=== PATIENT | female | born 1990 | race African-American/Black ===

== ENCOUNTER 2017-01-16 13:05 | Emergency (ER) | payer MEDICAID ==
[~2017-01-16] VITALS: Ht 180.3 cm; Wt 60.4 kg
[~2017-01-16 13:05] MED LIST: PROT40TA PO; ZOFR4TAB3 SL
[2017-01-16 13:07] VITALS: BP 138/98; PULSE 80; RESP 16; TEMP 97.8; O2SAT 100
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
[2017-01-16] MEDS ORDERED: IBUP800T23 PO (14:45)
== END 2017-01-16 14:57 | disposition home or self-care (01) ==
LOC: PHEFT 13:05
DX: S39.012A Strain of muscle, fascia and tendon of lower back, initial encounter (principal); S30.0XXA Contusion of lower back and pelvis, initial encounter; M06.9 Rheumatoid arthritis, unspecified; B19.10 Unspecified viral hepatitis B without hepatic coma; F17.210 Nicotine dependence, cigarettes, uncomplicated; Y08.02XA Assault by strike by baseball bat, initial encounter
CPT/HCPCS: 72110; 99283

== ENCOUNTER 2017-06-12 08:03 | Observation (INO) | payer MEDICAID ==
[~2017-06-12] VITALS: Ht 177.8 cm; Wt 63.0 kg
[~2017-06-12 08:03] MED LIST changes: +IBUP1TAB7 PO; -PROT40TA PO; -ZOFR4TAB3 SL
[2017-06-12 08:04] VITALS: BP 134/87; PULSE 71; RESP 16; TEMP 98.3; O2SAT 100
[2017-06-12 08:05] VITALS: BP 115/65; PULSE 62; RESP 18; TEMP 98.2; O2SAT 99
[2017-06-12] MEDS ORDERED: SODIUM CHLOR 0.9% 1000 ML INJ 1,000 ML IV SCH (08:24)
[2017-06-12] MEDS ORDERED: SODIUM CHLORIDE 0.9% FLUSH 10 ML FLUSH IV FLUSH PRN (08:30)
[2017-06-12] MEDS ORDERED: MORPHINE SULFATE 4 MG/ML INJ IV PUSH ONE ×2 (08:30→11:15)
[2017-06-12] MEDS ORDERED: ONDANSETRON HCL 4 MG/2 ML VIAL IVP ONE (08:30)
--- NOTE | 2017-06-12 08:32 | PD ---
HPI Chief Complaint: Abdominal Pain Time Seen by Provider: 08:24 Travel History International Travel<30 days: No Contact w/Intl Traveler<30days: No Traveled to known affect area: No History of Present Illness HPI 0.6-year-old female history of pancreatitis, presents today with complaint of nausea vomiting and upper abdominal pain. The patient states it started yesterday. She reports the pain as sharp and stabbing in her left upper abdomen radiating to her left back. She denies any fevers, chills. She states that 2 years ago she had an episode of pancreatitis and was seen and evaluated at [facility]. There is no blood in her vomit. There is no reported diarrhea. There are no other complaints time my examination. PFSH Past Medical History Arthritis: Yes (RA) Autoimmune Disease: Yes (RA) Bipolar Disorder: Yes Anxiety: Yes Depression: Yes Heart Rhythm Problems: No Cancer: No Cardiovascular Problems: No High Cholesterol: No Chemotherapy: No Chest Pain: No Congestive Heart Failure: No Cerebrovascular Accident: No Diminished Hearing: No Endocrine: No Gastrointestinal Disorders: Yes GERD: No Genitourinary: No Headaches: Yes Hepatitis: Yes (B) Hiatal Hernia: No Hypertension: No Immune Disorder: No Implanted Vascular Access Dvce: No Musculoskeletal: Yes Neurologic: Yes Psychiatric: No Reproductive: No Respiratory: No Immunizations Current: No Migraines: No Pancreatitis: Yes Radiation Therapy: No Seizures: Yes Ulcer: No ?: Not : 1 Miscarriage: 1 Past Surgical History Surgical History: No Previous Surgery Other Surgery: No Social History Alcohol Use: No Tobacco Use: Yes (/3PPD) Substance Use: No Allergies-Medications (Allergen,Severity, Reaction): Coded Allergies: metoclopramide (Verified Adverse Reaction, Unknown, 06/12/17) Reported Meds & Prescriptions Reported Meds & Active Scripts Active No Active Prescriptions or Reported Medications Review of Systems Except as stated in HPI: all other systems reviewed are Neg General / Constitutional: No: Fever, Chills HENT: No: Headaches, Lightheadedness, Neck Pain Cardiovascular: No: Chest Pain or Discomfort, Palpitations Respiratory: No: Cough, Shortness of Breath Gastrointestinal: Positive: Nausea, Vomiting, Abdominal Pain (left upper radiate into her left back.), No: Diarrhea Genitourinary: No: Frequency, Dysuria, Discharge, Vaginal Bleeding Musculoskeletal: No: Weakness, Pain Neurologic: No: Weakness, Dizziness, Headache Psychiatric: Positive: Anxiety Physical Exam Narrative GENERAL: Well-nourished, well-developed patient, in no acute respiratory distress.. SKIN: Focused skin assessment warm/dry. HEAD: Normocephalic/atraumatic. EYES: No scleral icterus. No injection or drainage. NECK: Supple, trachea midline. CARDIOVASCULAR: Regular rate and rhythm without murmurs, gallops, or rubs. RESPIRATORY: Breath sounds equal bilaterally. No accessory muscle use. GASTROINTESTINAL: Abdomen soft, nondistended. She has subjective tenderness in her left upper abdomen. There is no rebound. There is mild guarding. No hepatosplenomegaly appreciated. MUSCULOSKELETAL: No cyanosis, or edema. BACK: Nontender without obvious deformity. No CVA tenderness. Subjective pain in her left flank. Not reproducible on exam. NEUROLOGICAL: Awake and alert. Cranial nerves II through XII intact. Motor grossly within normal limits. Five out of 5 muscle strength in all muscle groups. Normal speech. Data Data Last Documented VS Vital Signs Date Time Temp Pulse Resp B/P (MAP) Pulse Ox O2 Delivery O2 Flow Rate FiO2 06/12/17 08:40 57 19 100 06/12/17 08:04 98.3 Orders Orders Complete Blood Count With Diff (06/12/17 08:24) Comprehensive Metabolic Panel (06/12/17 08:24) Lipase (06/12/17 08:24) Urinalysis - C+S If Indicated (06/12/17 08:24) Iv Access Insert/Monitor (06/12/17 08:24) Ecg Monitoring (06/12/17 08:24) Oximetry (06/12/17 08:24) Morphine Inj (Morphine Inj) (06/12/17 08:30) Ondansetron Inj (Zofran Inj) (06/12/17 08:30) Sodium Chlor 0.9% 1000 Ml Inj (Ns 1000 M (06/12/17 08:24) Sodium Chloride 0.9% Flush (Ns Flush) (06/12/17 08:30) Ed Urine Pregnancytest Poc (06/12/17 08:24) Morphine Inj (Morphine Inj) (06/12/17 11:15) Place In Observation (06/12/17 ) Vital Signs (Adult) Q4H (06/12/17 11:46) Activity Oob With Assistance (06/12/17 11:46) Substation Maintenance Technician / Telemetry .CONTINUOUS (06/12/17 11:46) Diet Clear Liquid (06/12/17 Lunch) Sodium Chlor 0.9% 1000 Ml Inj (Ns 1000 M (06/12/17 11:46) Sodium Chloride 0.9% Flush (Ns Flush) (06/12/17 12:00) Sodium Chloride 0.9% Flush (Ns Flush) (06/12/17 21:00) Comprehensive Metabolic Panel (06/13/17 06:00) Complete Blood Count With Diff (06/13/17 06:00) Case Management Consult (06/12/17 11:46) Naloxone Inj (Narcan Inj) (06/12/17 12:00) Morphine Inj (Morphine Inj) (06/12/17 12:00) Ondansetron Inj (Zofran Inj) (06/12/17 12:00) Admit Order (Ed Use Only) (06/12/17 12:01) Labs Laboratory Tests Test 06/12/17 08:25 White Blood Count 5.3 TH/MM3 Red Blood Count 4.57 MIL/MM3 Hemoglobin 13.2 GM/DL Hematocrit 40.5 % Mean Corpuscular Volume 88.7 FL Mean Corpuscular Hemoglobin 28.9 PG Mean Corpuscular Hemoglobin Concent 32.5 % Red Cell Distribution Width 13.1 % Platelet Count 257 TH/MM3 Mean Platelet Volume 9.4 FL Neutrophils (%) (Auto) 54.9 % Lymphocytes (%) (Auto) 37.0 % Monocytes (%) (Auto) 6.0 % Eosinophils (%) (Auto) 1.4 % Basophils (%) (Auto) 0.7 % Neutrophils # (Auto) 2.9 TH/MM3 Lymphocytes # (Auto) 2.0 TH/MM3 Monocytes # (Auto) 0.3 TH/MM3 Eosinophils # (Auto) 0.1 TH/MM3 Basophils # (Auto) 0.0 TH/MM3 CBC Comment DIFF FINAL Differential Comment Urine Color YELLOW Urine Turbidity CLEAR Urine pH 6.5 Urine Specific [place] 1.018 Urine Protein NEG mg/dL Urine Glucose (UA) NEG mg/dL Urine Ketones 40 mg/dL Urine Occult Blood SMALL Urine Nitrite NEG Urine Bilirubin NEG Urine Urobilinogen 2.0 MG/DL Urine Leukocyte Esterase NEG Urine RBC LESS THAN 1 /hpf Urine WBC LESS THAN 1 /hpf Urine Squamous Epithelial Cells 2 /hpf Urine Mucus FEW /lpf Microscopic Urinalysis Comment CULT NOT INDICATED Blood Urea Nitrogen 8 MG/DL Creatinine 0.76 MG/DL Random Glucose 89 MG/DL Total Protein 8.8 GM/DL Albumin 3.8 GM/DL Calcium Level 9.1 MG/DL Alkaline Phosphatase 48 U/L Aspartate Amino Transf (AST/SGOT) 17 U/L Alanine Aminotransferase (ALT/SGPT) 18 U/L Total Bilirubin 0.3 MG/DL Sodium Level 137 MEQ/L Potassium Level 4.2 MEQ/L Chloride Level 103 MEQ/L Carbon Dioxide Level 24.7 MEQ/L Anion Gap 9 MEQ/L Estimat Glomerular Filtration Rate 111 ML/MIN Lipase 515 U/L [facility] Medical Decision Making Medical Screen Exam Complete: Yes Emergency Medical Condition: Yes Differential Diagnosis Peptic ulcer disease versus pancreatitis versus cholecystitis Narrative Course 27 old female who presents with epigastric pain radiated into her left flank. The patient has a history of pancreatitis. Her lipase is elevated at above 500. She's been given 2 doses of IV pain medications. She'll be admitted to the medicine service for IV pain control and bowel rest. There is a call out to the admitting service. Diagnosis Primary Impression: Pancreatitis Additional Impression: Nausea & vomiting Admitting Information Admitting Physician Requests: Admit Scripts No Active Prescriptions or Reported Meds Ricky Gann MD Jun 12, 2017 08:32
[2017-06-12 08:40] VITALS: PULSE 57; RESP 19; O2SAT 100
[2017-06-12 09:17] LABS: AUTOMATED NEUTROPHIL # 2.9 TH/MM3 (1.8-7.7); BASOPHIL % 0.7 % (0.0-2.0); EOSINOPHIL # 0.1 TH/MM3 (0-0.4); EOSINOPHIL % 1.4 % (0.0-4.0); HEMATOCRIT 40.5 % (35.0-46.0); HEMO FLAGS DIFF FINAL; MEAN CELL VOLUME 88.7 FL (80.0-100.0); MEAN CORPUSCULAR HEMOGLOBIN 28.9 PG (27.0-34.0); MEAN CORPUSCULAR HGB CONC 32.5 % (32.0-36.0); NEUT % 54.9 % (16.0-70.0); PLATELET COUNT 257 TH/MM3 (150-450); RED BLOOD COUNT 4.57 MIL/MM3 (4.00-5.30); RED CELL DISTRIBUTION WIDTH 13.1 % (11.6-17.2); WHITE BLOOD COUNT 5.3 TH/MM3 (4.0-11.0)
[2017-06-12 09:21] LABS: BLOOD, URINE SMALL (NEG); COMMENT (UR) CULT NOT INDICATED; CULTURE IF INDICATED CULT NOT INDICATED; GLUCOSE,URINE NEG (NEG); KETONE, URINE 40 mg/dL (NEG); MUCUS URINE FEW /lpf (OCC); NITRITE,URINE NEG (NEG); PH, URINE 6.5 (5.0-8.5); SQUAMOUS EPITHELIAL CELL URINE 2 /hpf (0-5); URINE COLOR YELLOW (YELLW/STRAW)
[2017-06-12 09:46] LABS: ALKALINE PHOSPHATASE 48 U/L (45-117); ALT (GPT) 18 U/L (10-53); TOTAL BILIRUBIN ADULT 0.3 MG/DL (0.2-1.0)
[2017-06-12 10:01] LABS: ANION GAP 9 MEQ/L (5-15); AST (GOT) 17 U/L (15-37); BICARBONATE 24.7 MEQ/L (21.0-32.0); BLOOD UREA NITROGEN 8 MG/DL (7-18); CHLORIDE 103 MEQ/L (98-107); GLOMERULAR FILTRATION RATE 111 ML/MIN (>89); POTASSIUM 4.2 MEQ/L (3.5-5.1); SODIUM (NA) 137 MEQ/L (136-145)
[2017-06-12] MEDS ORDERED: ONDANSETRON HCL 4 MG/2 ML VIAL IV PUSH PRN (12:00)
[2017-06-12] MEDS ORDERED: NALOXONE HCL 0.4 MG/ML AMP IV PUSH PRN (12:00)
[2017-06-12 13:03] VITALS: BP 116/55; PULSE 57; RESP 18; O2SAT 99
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
[2017-06-12] MEDS ORDERED: DIATRIZOATE MEGLUM/DIATRIZOATE SOD 9 ML CUP PO ONE (14:30)
[2017-06-12] MEDS: SODIUM CHLOR 0.9% 1000 ML INJ 1,000 ML IV SCH (14:51)
[2017-06-12 15:22] VITALS: BP 103/70; PULSE 75; RESP 24; TEMP 98.3; O2SAT 99
--- NOTE | 2017-06-12 16:00 | PD.CONS ---
HPI History of Present Illness This is a 27 year old female with hx h pylori, who presented with upper left abd pain and back pain, n/v. Onset yesterday morning and worsened. She has been having this pain and n/v, intermittently every few months, for the last 5- 6 years. Pain is LUQ and radiates straight through to back, no exacerbating, associated, or relieving factors. No diarrhea, hematemesis, blood in stool, dark tarry stool. She has lost 10 lbs in the last 6 months, cites decreased appetite and early satiety. SHe feels that she is often thirsty and drinks alot of fluids. IF she does not have anythign to drink she starts having copious belching. SHe had EGD & colonoscopy 2 y ago at [facility] and she can recall no abnormal findings. SHe had a GES at [facility] 2 y ago and she does not recall the outcome. (Bhumika Torres) PFSH Past Medical History seizures chronic nausea- and thats why she is not eating well chronically loss of appetite weight loss - past one year- two years only Past Surgical History none except for egd and colonoscopy (Bhumika Torres) Coded Allergies: metoclopramide (Verified Adverse Reaction, Unknown, 06/12/17) Family History parents- htn mother- hysterectomy paternal grandfather- colon cancer- diagnosed at age 65yo Social History smokes about 10 cigarettes a day no drinking etoh no drugs (Bhumika Torres) Review of Systems Constitutional: COMPLAINS OF: Weight loss Endocrine: COMPLAINS OF: Polydipsia Ears, nose, mouth, throat: DENIES: Hearing loss Respiratory: DENIES: Hemoptysis Cardiovascular: DENIES: Chest pain Gastrointestinal: COMPLAINS OF: Abdominal pain, Nausea, Vomiting, Anorexia, DENIES: Black stools, Bloody stools, Constipation, Diarrhea, Hematemesis Genitourinary: DENIES: Hematuria Musculoskeletal: DENIES: Joint Swelling Integumentary: DENIES: Jaundice Hematologic/lymphatic: DENIES: Bruising Neurologic: DENIES: Abnormal gait Psychiatric: DENIES: Confusion (Bhumika Torres) GI Exam Vitals I&O Vital Signs Date Time Temp Pulse Resp B/P (MAP) Pulse Ox O2 Delivery O2 Flow Rate FiO2 06/12/17 15:22 98.3 75 24 103/70 (81) 99 06/12/17 13:35 06/12/17 13:03 57 18 116/55 (75) 99 Room Air 06/12/17 08:40 57 19 100 06/12/17 08:16 (103) 06/12/17 08:04 98.3 71 16 134/87 (103) 100 Laboratory Test 06/12/17 08:25 White Blood Count 5.3 TH/MM3 Red Blood Count 4.57 MIL/MM3 Hemoglobin 13.2 GM/DL Hematocrit 40.5 % Mean Corpuscular Volume 88.7 FL Mean Corpuscular Hemoglobin 28.9 PG Mean Corpuscular Hemoglobin Concent 32.5 % Red Cell Distribution Width 13.1 % Platelet Count 257 TH/MM3 Mean Platelet Volume 9.4 FL Neutrophils (%) (Auto) 54.9 % Lymphocytes (%) (Auto) 37.0 % Monocytes (%) (Auto) 6.0 % Eosinophils (%) (Auto) 1.4 % Basophils (%) (Auto) 0.7 % Neutrophils # (Auto) 2.9 TH/MM3 Lymphocytes # (Auto) 2.0 TH/MM3 Monocytes # (Auto) 0.3 TH/MM3 Eosinophils # (Auto) 0.1 TH/MM3 Basophils # (Auto) 0.0 TH/MM3 CBC Comment DIFF FINAL Differential Comment Urine Color YELLOW Urine Turbidity CLEAR Urine pH 6.5 Urine Specific [place] 1.018 Urine Protein NEG mg/dL Urine Glucose (UA) NEG mg/dL Urine Ketones 40 mg/dL Urine Occult Blood SMALL Urine Nitrite NEG Urine Bilirubin NEG Urine Urobilinogen 2.0 MG/DL Urine Leukocyte Esterase NEG Urine RBC LESS THAN 1 /hpf Urine WBC LESS THAN 1 /hpf Urine Squamous Epithelial Cells 2 /hpf Urine Mucus FEW /lpf Microscopic Urinalysis Comment CULT NOT INDICATED Blood Urea Nitrogen 8 MG/DL Creatinine 0.76 MG/DL Random Glucose 89 MG/DL Total Protein 8.8 GM/DL Albumin 3.8 GM/DL Calcium Level 9.1 MG/DL Alkaline Phosphatase 48 U/L Aspartate Amino Transf (AST/SGOT) 17 U/L Alanine Aminotransferase (ALT/SGPT) 18 U/L Total Bilirubin 0.3 MG/DL Sodium Level 137 MEQ/L Potassium Level 4.2 MEQ/L Chloride Level 103 MEQ/L Carbon Dioxide Level 24.7 MEQ/L Anion Gap 9 MEQ/L Estimat Glomerular Filtration Rate 111 ML/MIN Lipase 515 U/L Physical Examination HEENT: PERRL; normocephalic; atraumatic; no jaundice. CHEST: CTA CARDIAC: RRR ABDOMEN: Soft, nondistended, LUQ TTP; no hepatosplenomegaly; bowel sounds are present in all four quadrants. EXTREMITIES: No clubbing, cyanosis, or edema. SKIN: Normal; no rash; no jaundice. TOOL AND FIXTURE REPAIRER: No focal deficits; alert and oriented times three. (Bhumika Torres) Assessment and Plan Plan ASSESSMENT - n/v, abd pain , elevated lipase - epigastric and LUQ pain, belching, thirst. has episodes of this intermittently for last 5-6 y. lipase could be elevated d/t vomiting. has had work up in past but cannot recall many details. EGD/ colonoscopy 2 y ago, recalls no abnormal findings. [facility] records from [facility] yields neg CT scan 2016, lipase < 100 on 2 occasions in last year. Says she did have h pylori in past and was treated CT pending, will get MRCP as well to r/o pancreatitis, pancreatic divisum. EGD r/o h pylori, gastritis. PLAN - await CT - EGD tomorrow - obtain consent - NPO after midnight - clears ok for now - MRCP - consider colonoscopy, GES if above negative - monitor labs - further recs as case unfolds This pt seen by myself and Dr Mccabe and this note is written on his behalf (Bhumika Torres) Physician Comments Seen and examined with cesilia Goyal as above. Conservative treatment for now. Will need work up for recurrent idiopathic pancreatitis. Further recommendations to follow pending EGD/MRCP/IgG4/ELIZABETH. (Darshana Mccabe MD) Bhumika Torres Jun 12, 2017 16:00 Darshana Mccabe MD Jun 12, 2017 16:34
[2017-06-12] MEDS: MORPHINE SULFATE 2 MG/ML INJ IV PUSH PRN ×2 (16:13→22:02)
[2017-06-12] MEDS ORDERED: IOHEXOL 350 MG/ML 10 ML VIAL (for RAD DIAG) IVCONTRAST ONE (18:16)
--- NOTE | 2017-06-12 18:54 | RADRPT ---
EXAM DATE/TIME: 06/12/2017 18:11 [facility] COMPARISON: No previous studies available for comparison. INDICATIONS : Nausea, vomiting and upper abdomen pain. IV CONTRAST: 72 cc Omnipaque 350 (iohexol) IV ORAL CONTRAST: Prescribed oral contrast ingested. RADIATION DOSE: 6.64 CTDIvol (mGy) MEDICAL HISTORY : Hepatitis B. Pancreatitis. Seizures. SURGICAL HISTORY : None. ENCOUNTER: Initial ACUITY: 1 day PAIN SCALE: 6/10 LOCATION: Bilateral upper quadrant TECHNIQUE: Volumetric scanning of the abdomen and pelvis was performed. Using automated exposure control and ad justment of the mA and/or kV according to patient size, radiation dose was kept as low as reasonably achievable to obtain optimal diagnostic quality images. DICOM format image data is available electro nically for review and comparison. FINDINGS: LOWER LUNGS: The visualized lower lungs are clear. LIVER: Homogeneous density without lesion. There is no dilation of the biliary tree. No calcified gallston es. SPLEEN: Normal size without lesion. PANCREAS: Within normal limits. KIDNEYS: Normal in size and shape. There is no mass, stone or hydronephrosis. ADRENAL GLANDS: Within normal limits. VASCULAR: There is no aortic aneurysm. BOWEL/MESENTERY: The stomach, small bowel, and colon demonstrate no acute abnormality. There is no free intraperitone al air or fluid. Terminal ileum is normal. Appendix is not visualized. ABDOMINAL WALL: Within normal limits. RETROPERITONEUM: There is no lymphadenopathy. BLADDER: No wall thickening or mass. Urinary bladder is distended. REPRODUCTIVE: Within normal limits. There is a tampon within the vagina. INGUINAL: There is no lymphadenopathy or hernia. MUSCULOSKELETAL: Within normal limits for patient age. CONCLUSION: No acute finding is identified within the abdomen or pelvis. Venkat Banda MD on June 12, 2017 at 18:49 Board Certified Radiologist. This report was verified electronically.
[2017-06-12] MEDS: SODIUM CHLORIDE 0.9% FLUSH 10 ML FLUSH IV FLUSH SCH (20:55)
[2017-06-12] MEDS: SODIUM CHLORIDE 0.9% FLUSH 10 ML FLUSH IV FLUSH PRN (22:01)
[2017-06-13] MEDS: SODIUM CHLOR 0.9% 1000 ML INJ 1,000 ML IV SCH ×2 (02:24→09:55)
[2017-06-13] MEDS: SODIUM CHLORIDE 0.9% FLUSH 10 ML FLUSH IV FLUSH PRN ×2 (02:24→06:15)
[2017-06-13] MEDS: MORPHINE SULFATE 2 MG/ML INJ IV PUSH PRN ×3 (02:25→09:52)
[2017-06-13 02:56] VITALS: PULSE 63
[2017-06-13 05:17] VITALS: PULSE 62
[2017-06-13 06:02] LABS: EOSINOPHIL # 0.1 TH/MM3 (0-0.4); EOSINOPHIL % 2.7 % (0.0-4.0); HEMATOCRIT 36.3 % (35.0-46.0); HEMO FLAGS DIFF FINAL; LYMPH % 42.5 % (9.0-44.0); LYMPHOCYTE # 1.8 TH/MM3 (1.0-4.8); MEAN CELL VOLUME 88.3 FL (80.0-100.0); MEAN CORPUSCULAR HEMOGLOBIN 28.5 PG (27.0-34.0); MEAN CORPUSCULAR HGB CONC 32.2 % (32.0-36.0); MONO % 5.5 % (0.0-8.0); NEUT % 48.3 % (16.0-70.0); PLATELET COUNT 215 TH/MM3 (150-450); RED BLOOD COUNT 4.11 MIL/MM3 (4.00-5.30); WHITE BLOOD COUNT 4.1 TH/MM3 (4.0-11.0)
[2017-06-13 06:31] LABS: ALKALINE PHOSPHATASE 38 U/L (45-117); ALT (GPT) 13 U/L (10-53); ANION GAP 8 MEQ/L (5-15); AST (GOT) 11 U/L (15-37); BLOOD UREA NITROGEN 5 MG/DL (7-18); CHLORIDE 107 MEQ/L (98-107); GLOMERULAR FILTRATION RATE 152 ML/MIN (>89); POTASSIUM 3.6 MEQ/L (3.5-5.1); SODIUM (NA) 140 MEQ/L (136-145); TOTAL BILIRUBIN ADULT 0.4 MG/DL (0.2-1.0)
[2017-06-13 07:36] VITALS: BP 94/55; PULSE 60; RESP 16; TEMP 98.2; O2SAT 98
[2017-06-13] MEDS ORDERED: LACTATED RINGER'S 1000 ML IV PRN (08:15)
[2017-06-13] MEDS ORDERED: INSULIN HUMAN REGULAR 1,000 UNITS/10 ML VIAL SQ PRN (08:15)
[2017-06-13] MEDS ORDERED: SODIUM CHLORID 0.9% 500 ML IV PRN (08:15)
[2017-06-13] MEDS ORDERED: CHLORHEXIDINE GLUCONATE 2 % 1 PACK (2 CLOTHS) TOPICAL PRN (08:15)
[2017-06-13] MEDS ORDERED: METOPROLOL TARTRATE 25 MG TAB PO PRN (08:15)
[2017-06-13] MEDS ORDERED: POVIDONE IODINE 5% (ANTISEPSIS KIT) 4 APPLICATIONS EACH NARE PRN (08:15)
[2017-06-13] MEDS: SODIUM CHLORIDE 0.9% FLUSH 10 ML FLUSH IV FLUSH SCH (09:00)
--- NOTE | 2017-06-13 09:49 | RADRPT ---
EXAM DATE/TIME: 06/13/2017 08:10 [facility] COMPARISON: CT ABDOMEN & PELVIS W CONTRAST, June 12, 2017, 18:11. INDICATIONS : Pancreatitis. MEDICAL HISTORY : None. SURGICAL HISTORY : None. ENCOUNTER: Initial ACUITY: 2 day PAIN SCORE: 4/10 LOCATION: Abdomen TECHNIQUE: Multiplanar, multisequence magnetic resonance imaging of the abdomen was performed. High-resolution 3D dataset was utilized to reconstruct maximum-intensity projection (MIP) images. FINDINGS: INTRAHEPATIC BILE DUCTS: Within normal limits. No significant anatomical variant is present. EXTRAHEPATIC BILE DUCTS: The common bile duct measures 4 mm. No stone or filling defect is identified. GALLBLADDER: No stones, wall thickening, or pericholecystic fluid. LIVER: Normal size and signal intensity. No concerning liver lesion is identified on this non-contrast exam. PANCREAS: The main pancreatic duct is small and partially nonvisualized. There is no significant anatomical va riant. Signal intensity is within normal limits. No mass is visualized on this non-contrast exam. OTHER: The remaining visualized structures demonstrate no acute abnormality on this non-contrast exam. CONCLUSION: 1. No gallstones are present and common duct is normal without stone. 2. There are no imaging findings to definitively diagnose acute pancreatitis. No inflammatory changes are present. Venkat Banda MD on June 13, 2017 at 9:37 Board Certified Radiologist. This report was verified electronically.
--- NOTE | 2017-06-13 11:10 | GIPROC ---
[facility] [address] [facility]. [facility], [id number] EGD PROCEDURE REPORT EXAM DATE: 06/13/2017 PATIENT NAME: Opal Beaver MR #: [id number] BIRTHDATE: 1990 ATTENDING: Darshana Mccabe MD ORDER #: [id number] SIMULATION DEVELOPER: Kimberly Zamora and Christina Gray STATUS: inpatient INDICATIONS: The patient is a 27 yr old female here for an EGD due to epigastric abdominal pain PROCEDURE PERFORMED: EGD w/ biopsy MEDICATIONS: None and Per Anesthesia. TOPICAL ANESTHETIC: none CONSENT: The patient understands the risks and benefits of the procedure and understands that these risks include, but are not limited to: sedation, allergic reaction, infection, perforation and/or bleeding. Alternative means of evaluation and treatment include, among others: physical exam, x-rays, and/or surgical intervention. The patient elects to proceed with this endoscopic procedure. medical equipment was checked for proper function. Hand hygiene and appropriate measures for infection prevention was taken. After the risks, benefits and alternatives of the procedure were thoroughly explained, Informed consent was verified, confirmed and timeout was successfully executed by the treatment team. The patient was anesthetized with topical anesthesia and the Pentax EG-[id number] endoscope was introduced through the mouth and advanced to the second portion of the duodenum. Retroflexion was performed and was normal The gastroscope was then slowly withdrawn and removed. ESOPHAGUS: The mucosa of the esophagus appeared normal. STOMACH: There was mild gastritis in the gastric antrum. Multiple biopsies were performed using cold forceps. Sample sent for histology. DUODENUM: The duodenal mucosa appeared normal in the bulb and second portion of the duodenum. ADVERSE EVENTS: There were no complications. IMPRESSIONS: 1. The esophagus appeared normal 2. There was mild gastritis in the gastric antrum; multiple biopsies were performed 3. Normal duodenal mucosa in the bulb and second portion of the duodenum 4. Retroflexion was performed and was normal RECOMMENDATIONS: Await biopsy results. Biopsy results will not be ready for 7-10 days. If you don't hear from us in two weeks, call our office for biopsy results. PATIENT CONDITION: stable DISPOSITION: Observation REPEAT EXAM: NONE Darshana Mccabe MD eSigned: Darshana Mccabe MD 06/13/2017 11:10 AM cc: PATIENT NAME: Opal Beaver MR#: [id number]
[2017-06-13 12:00] VITALS: PULSE 61
[2017-06-13 12:15] VITALS: BP 116/61; PULSE 61; RESP 16; TEMP 98.5; O2SAT 99
[2017-06-13] MEDS ORDERED: CREON24 PO (13:21)
[2017-06-13] MEDS ORDERED: PERC5TAB12 PO (13:21)
--- NOTE | 2017-06-13 16:35 | HHI.DS ---
Discharge Summary Admission Date Jun 12, 2017 at 12:04 pm Discharge Date: Jun 13, 2017 Admitting Diagnosis Acute pancreatitis, nausea, vomiting (1) Pancreatitis ICD Code: K85.9 - Pancreatitis Status: Acute Procedures EGD Brief History - From Admission was not feelign weell since yesterady am pain startign night mid epig nasuewe, vomting spit no fever sweating feeling hot no blood no diarrhea, no constipation no burnign no urination no new medications not taking any meds for now has hx of seizures, was on keppra but hasnt taken any meds for past one year because no pcp lost eveything with loss of wallet 2015 had hida some gi workup including capsule endoscopy at [facility] did not follow up after that to get result still has gallbladder never been a drinker of etoh CBC/BMP: 06/13/17 0541 06/13/17 0541 Significant Findings Laboratory Tests Test 06/12/17 08:25 06/13/17 05:41 Urine Ketones 40 mg/dL (NEG) Urine Occult Blood SMALL (NEG) Urine Mucus FEW /lpf (OCC) Total Protein 8.8 GM/DL (6.4-8.2) Lipase 515 U/L (73-393) 410 U/L (73-393) Blood Urea Nitrogen 5 MG/DL (7-18) Albumin 3.1 GM/DL (3.4-5.0) Alkaline Phosphatase 38 U/L (45-117) Aspartate Amino Transf (AST/SGOT) 11 U/L (15-37) Imaging Last Impressions Cholangiopancreatography MRI 06/13/17 0000 Signed Impressions: Service Date/Time: Tuesday, June 13, 2017 08:10 - CONCLUSION: 1. No gallstones are present and common duct is normal without stone. 2. There are no imaging findings to definitively diagnose acute pancreatitis. No inflammatory changes are present. Venkat Banda MD Abdomen/Pelvis CT 06/12/17 0000 Signed Impressions: Service Date/Time: Monday, June 12, 2017 18:11 - CONCLUSION: No acute finding is identified within the abdomen or pelvis. Venkat Banda MD PE at Discharge GENERAL: Alert, Oriented x 3, NAD. SKIN: Warm and dry. HEAD: Normocephalic. EYES: No scleral icterus. No injection or drainage. NECK: Supple, trachea midline. No JVD or lymphadenopathy. CARDIOVASCULAR: Regular rate and rhythm without murmurs, gallops, or rubs. RESPIRATORY: Breath sounds equal bilaterally. No accessory muscle use. GASTROINTESTINAL: Abdomen soft, mild tenderness on palpation. nondistended. MUSCULOSKELETAL: No cyanosis, or edema. BACK: Nontender without obvious deformity. No CVA tenderness. Pt update on day of discharge Patient is doing well. No fever, chills. She is able to tolerate diet well. Hospital Course Ms. Beaver is a pleasant 27 year old female with a history of chronic pancreatitis who presented to the hospital due to epigastric pain. She underwent EGD and MRCP studies both of which were unremarkable. Lipase was not significantly elevated. Patient was given pain medications along with other supportive care. On the day of discharge, we discussed about pancreatic enzyme supplements such as Creon. Patient agrees to try if her insurance covers her Rx. GI recommended possible outpatient EUS. We subsequently discharged patient home with pain medications and follow up. Pt Condition on Discharge: Good Discharge Disposition: Discharge Home Discharge Time: <= 30 minutes Discharge Instructions DIET: Follow Instructions for: As Tolerated, No Restrictions Additional Diet Instructions: Avoid fatty food for at least one week. Activities you can perform: Regular-No Restrictions Follow up Referrals: Gastroenterology - 2 Weeks with Uriel Marks MD PCP Follow-up - 1 Week New Medications: Oxycodone-Acetaminophen (Percocet) 5-325 mg Tab 1 TAB PO Q6H PRN for PAIN, #20 TAB 0 Refills Pancrelipase (Creon) 24,000-76,000-120,000 Units Cap 1 CAP PO TIDPC for Digestive Aid, #[address] DO Jun 13, 2017 4:35 pm
== END 2017-06-13 15:02 | disposition home or self-care (01) ==
LOC: NEPE 08:03 → NEDA 12:04 → NEPGCP 14:13
PROVIDERS: ADMIT Hospitalist; ATTEND Hospitalist
DX: K29.70 Gastritis, unspecified, without bleeding (principal); K85.90 Acute pancreatitis without necrosis or infection, unspecified; R63.0 Anorexia; R63.4 Abnormal weight loss; R74.8 Abnormal levels of other serum enzymes; B19.10 Unspecified viral hepatitis B without hepatic coma; F17.210 Nicotine dependence, cigarettes, uncomplicated
CPT/HCPCS: 00740; 43239; 74177; 74181; 76377; 80053; 81001; 82784; 83690; 84478; 84703; 85025; 88305; 88312; 96361; 96374; 96375; 96376; 99285; G0378; J2270; J2405; J7030; J7120; Q9963; Q9967

== ENCOUNTER 2017-12-04 02:26 | Emergency (ER) | payer MEDICAID ==
[~2017-12-04] VITALS: Ht 177.8 cm; Wt 61.3 kg
[~2017-12-04 02:26] MED LIST changes: +CREON24 PO; -IBUP1TAB7 PO; +PERC5TAB12 PO
[2017-12-04 02:34] VITALS: BP 123/73; PULSE 75; RESP 18; TEMP 97.7; O2SAT 99
[2017-12-04 03:13] LABS: AUTOMATED NEUTROPHIL # 2.9 TH/MM3 (1.8-7.7); BASOPHIL # 0.1 TH/MM3 (0-0.2); EOSINOPHIL # 0.2 TH/MM3 (0-0.4); EOSINOPHIL % 3.3 % (0.0-4.0); HEMATOCRIT 38.6 % (35.0-46.0); HEMOGLOBIN 12.4 GM/DL (11.6-15.3); LYMPH % 47.7 % (9.0-44.0); LYMPHOCYTE # 3.3 TH/MM3 (1.0-4.8); MEAN CELL VOLUME 87.5 FL (80.0-100.0); MEAN CORPUSCULAR HEMOGLOBIN 28.1 PG (27.0-34.0); MEAN CORPUSCULAR HGB CONC 32.1 % (32.0-36.0); MEAN PLATELET VOLUME 9.1 FL (7.0-11.0); MONO % 3.9 % (0.0-8.0); MONOCYTE # 0.3 TH/MM3 (0-0.9); NEUT % 43.1 % (16.0-70.0); PLATELET COUNT 236 TH/MM3 (150-450); RED BLOOD COUNT 4.41 MIL/MM3 (4.00-5.30); WHITE BLOOD COUNT 6.8 TH/MM3 (4.0-11.0)
[2017-12-04 03:17] VITALS: RESP 18; O2SAT 98
[2017-12-04 03:19] LABS: CHLORIDE 104 MEQ/L (98-107); SODIUM (NA) 137 MEQ/L (136-145)
[2017-12-04 03:22] LABS: CALCIUM 9.3 MG/DL (8.5-10.1)
[2017-12-04 03:23] LABS: ALBUMIN 3.5 GM/DL (3.4-5.0); BICARBONATE 29.2 MEQ/L (21.0-32.0); BLOOD UREA NITROGEN 5 MG/DL (7-18); GLUCOSE,RANDOM 90 MG/DL (74-106)
[2017-12-04 03:25] LABS: ALT (GPT) 14 U/L (10-53); AST (GOT) 13 U/L (15-37); CREATININE 0.62 MG/DL (0.50-1.00); GLOMERULAR FILTRATION RATE 141 ML/MIN (>89)
[2017-12-04 03:27] LABS: TOTAL BILIRUBIN ADULT 0.2 MG/DL (0.2-1.0); TOTAL PROTEIN 8.4 GM/DL (6.4-8.2)
[2017-12-04 03:28] LABS: ALKALINE PHOSPHATASE 56 U/L (45-117)
[2017-12-04 03:33] LABS: BILIRUBIN, URINE NEG (NEG); BLOOD, URINE NEG (NEG); GLUCOSE,URINE NEG (NEG); KETONE, URINE NEG (NEG); NITRITE,URINE NEG (NEG); URINE COLOR YELLOW (YELLW/STRAW); URINE LEUKOCYTE ESTERASE TRACE (NEG)
[2017-12-04 03:37] LABS: BACTERIA, URINE OCC /hpf; RBC, URINE 0-3 /hpf (0-3); SQUAMOUS EPITHELIAL CELL URINE > 8 /hpf (0-5)
--- NOTE | 2017-12-04 04:12 | PD ---
HPI Chief Complaint: Abdominal Pain Time Seen by Provider: 04:11 Travel History International Travel<30 days: No Contact w/Intl Traveler<30days: No Traveled to known affect area: No History of Present Illness HPI The patient is a 27-year-old female who complains of left upper quadrant abdominal pain since Monday. She does have nausea without vomiting. She denies any diarrhea. The pain is mostly in the left flank. She states she cannot be . She denies any fever. She states the pain is an 8/10. PFSH Past Medical History Arthritis: Yes (RA) Asthma: No Autoimmune Disease: Yes (RA) Blood Disorders: No Bipolar Disorder: Yes Anxiety: Yes Depression: Yes Heart Rhythm Problems: No Cancer: No Cardiovascular Problems: No High Cholesterol: No Chemotherapy: No Chest Pain: No Congestive Heart Failure: No COPD: No Cerebrovascular Accident: No Diabetes: No Diminished Hearing: No Endocrine: No Gastrointestinal Disorders: Yes GERD: No Genitourinary: No Headaches: Yes Hepatitis: Yes (B) Hiatal Hernia: No Hypertension: No Immune Disorder: No Implanted Vascular Access Dvce: No Musculoskeletal: No Neurologic: Yes Psychiatric: No Reproductive: No Respiratory: No Immunizations Current: No Migraines: No Pancreatitis: Yes Radiation Therapy: No Seizures: Yes Sleep Apnea: No Thyroid Disease: No Ulcer: No Tetanus Vaccination: > 5 Years Influenza Vaccination: No ?: Not : 1 Miscarriage: 1 Past Surgical History Other Surgery: No Social History Alcohol Use: No Tobacco Use: Yes (13PPD) Substance Use: No Allergies-Medications (Allergen,Severity, Reaction): Coded Allergies: metoclopramide (Verified Adverse Reaction, Unknown, 06/12/17) Reported Meds & Prescriptions Reported Meds & Active Scripts Active Creon (Amylase/Lipase/Protease) 24,000-76,000-120,000 Units Cap 1 Cap PO TIDPC Percocet (Oxycodone-Acetaminophen) 5-325 mg Tab 1 Tab PO Q6H PRN Review of Systems Except as stated in HPI: all other systems reviewed are Neg Physical Exam Narrative GENERAL: The patient is alert, oriented 3, mildly dehydrated appearing and slight apparent distress with her left flank pain. Her vital signs are normal. SKIN: Focused skin assessment warm/dry. No needle tracks no wrist slash felder are present. HEAD: Atraumatic. Normocephalic. EYES: Pupils equal and round. No scleral icterus. No injection or drainage. ENT: No nasal bleeding or discharge. Mucous membranes pink and moist. NECK: Trachea midline. No JVD. CARDIOVASCULAR: Regular rate and rhythm. No murmur appreciated. RESPIRATORY: No accessory muscle use. Clear to auscultation. Breath sounds equal bilaterally. GASTROINTESTINAL: Abdomen soft, with tenderness to direct palpation over the left flank, nondistended. Hepatic and splenic margins not palpable. No guarding or rebound is present. MUSCULOSKELETAL: No obvious deformities. No clubbing. No cyanosis. No edema. NEUROLOGICAL: Awake and alert. No obvious cranial nerve deficits. Motor grossly within normal limits. Normal speech. PSYCHIATRIC: Appropriate mood and affect; insight and judgment normal. Data Data Last Documented VS Vital Signs Date Time Temp Pulse Resp B/P (MAP) Pulse Ox O2 Delivery O2 Flow Rate FiO2 12/04/17 05:11 63 16 121/64 (83) 99 Room Air 12/04/17 02:34 97.7 Orders Orders Complete Blood Count With Diff (12/04/17 02:47) Comprehensive Metabolic Panel (12/04/17 02:49) Ed Urine Pregnancytest Poc (12/04/17 02:49) Urinalysis - C+S If Indicated (12/04/17 02:50) Iv Access Insert/Monitor (12/04/17 02:50) Ecg Monitoring (12/04/17 02:50) Oximetry (12/04/17 02:50) Lipase (12/04/17 02:49) Ct Abd/Pel W Iv Contrast(Rout) (12/04/17 04:13) Ondansetron Inj (Zofran Inj) (12/04/17 04:30) Ceftriaxone Inj (Rocephin Inj) (12/04/17 04:30) Sodium Chlor 0.9% 1000 Ml Inj (Ns 1000 M (12/04/17 04:30) Chest, Pa & Lat (12/04/17 04:34) Iohexol 350 Inj (Omnipaque 350 Inj) (12/04/17 05:03) Labs Laboratory Tests Test 12/04/17 03:03 12/04/17 03:10 White Blood Count 6.8 TH/MM3 Red Blood Count 4.41 MIL/MM3 Hemoglobin 12.4 GM/DL Hematocrit 38.6 % Mean Corpuscular Volume 87.5 FL Mean Corpuscular Hemoglobin 28.1 PG Mean Corpuscular Hemoglobin Concent 32.1 % Red Cell Distribution Width 13.0 % Platelet Count 236 TH/MM3 Mean Platelet Volume 9.1 FL Neutrophils (%) (Auto) 43.1 % Lymphocytes (%) (Auto) 47.7 % Monocytes (%) (Auto) 3.9 % Eosinophils (%) (Auto) 3.3 % Basophils (%) (Auto) 2.0 % Neutrophils # (Auto) 2.9 TH/MM3 Lymphocytes # (Auto) 3.3 TH/MM3 Monocytes # (Auto) 0.3 TH/MM3 Eosinophils # (Auto) 0.2 TH/MM3 Basophils # (Auto) 0.1 TH/MM3 CBC Comment DIFF FINAL Differential Comment Blood Urea Nitrogen 5 MG/DL Creatinine 0.62 MG/DL Random Glucose 90 MG/DL Total Protein 8.4 GM/DL Albumin 3.5 GM/DL Calcium Level 9.3 MG/DL Alkaline Phosphatase 56 U/L Aspartate Amino Transf (AST/SGOT) 13 U/L Alanine Aminotransferase (ALT/SGPT) 14 U/L Total Bilirubin 0.2 MG/DL Sodium Level 137 MEQ/L Potassium Level 3.7 MEQ/L Chloride Level 104 MEQ/L Carbon Dioxide Level 29.2 MEQ/L Anion Gap 4 MEQ/L Estimat Glomerular Filtration Rate 141 ML/MIN Lipase 239 U/L Urine Color YELLOW Urine Turbidity CLEAR Urine pH 7.0 Urine Specific [place] LESS/EQUAL 1.005 Urine Protein NEG mg/dL Urine Glucose (UA) NEG mg/dL Urine Ketones NEG mg/dL Urine Occult Blood NEG Urine Nitrite NEG Urine Bilirubin NEG Urine Urobilinogen 1.0 MG/DL Urine Leukocyte Esterase TRACE Urine RBC 0-3 /hpf Urine WBC 6-8 /hpf Urine Squamous Epithelial Cells > 8 /hpf Urine Bacteria OCC /hpf Microscopic Urinalysis Comment CULT NOT INDICATED MDM Medical Decision Making Medical Screen Exam Complete: Yes Emergency Medical Condition: Yes Medical Record Reviewed: Yes Interpretation(s) The CT abdomen/pelvis with IV contrast shows possible levoscoliosis of the lumbar spine and stool in the distal colon possibly representing constipation. The CT scan is otherwise negative. The chest x-ray shows no acute cardiopulmonary disease. The complete metabolic profile shows a total protein of 8.4 and anion gap of 4 but is otherwise normal. The lipase is normal. The CBC is normal. The urinalysis shows trace leukocyte esterase and specific gravity 1.005 with 68 white cells and occasional bacteria. Differential Diagnosis Pyelonephritis, diverticulitis, colitis, pancreatitis, electrolyte disorder, dehydration Narrative Course The patient likely has pyelonephritis. The urine is extremely dilute with a specific gravity of less than 1.005. Despite the dilute nature of the urine she does show trace leukocyte Estrace, 6 date white cells and occasional bacteria. Moreover, she does have symptoms of pyelonephritis with tenderness over the left kidney. The patient wants something for pain and mentions Percocet 5 works for her. She states that Motrin does not work for her. Plan: The patient will be given prochlorperazine for nausea and Macrobid for the pyelonephritis. She should follow-up with her primary care physician this week. Diagnosis Primary Impression: Pyelonephritis Additional Instructions: As we discussed, do not drink alcohol or drive on the prochlorperazine or the Percocet. The antibiotic is 1 tablet twice daily for 10 days. Follow-up this week with your primary care physician. Med/Other Pt SpecificInfo: Prescription(s) given Scripts Prochlorperazine Maleate (Prochlorperazine Maleate) 10 Mg Tab 10 MG PO Q6H Y for NAUSEA OR VOMITING, #20 TAB 0 Refills Prov: Dominic Horn MD 12/04/17 Oxycodone-Acetaminophen (Percocet) 5-325 mg Tab 1 TAB PO Q6H Y for PAIN, #15 TAB 0 Refills Prov: Dominic Horn MD 12/04/17 Nitrofurantoin Monohydrate Macrocrystals (Macrobid) 100 Mg Cap 100 MG PO BID for Infection for 10 Days, #20 CAP 0 Refills Prov: Dominic Horn MD 12/04/17 Disposition: 01 DISCHARGE HOME Condition: Stable Dominic Horn MD Dec 04, 2017 04:12
[2017-12-04] MEDS ORDERED: ONDANSETRON HCL 4 MG/2 ML VIAL IV ONE (04:30)
[2017-12-04] MEDS ORDERED: cefTRIAXone INJ 1,000 MG in SODIUM CHLORIDE 0.9% INJ 100 ML IV ONE (04:30)
[2017-12-04] MEDS: SODIUM CHLOR 0.9% 1000 ML INJ 1,000 ML IV SCH ×2 (04:30→04:50)
[2017-12-04] MEDS ORDERED: IOHEXOL 350 MG/ML 10 ML VIAL (for RAD DIAG) IVCONTRAST ONE (05:03)
[2017-12-04 05:11] VITALS: BP 121/64; PULSE 63; RESP 16; O2SAT 99
--- NOTE | 2017-12-04 05:24 | RADRPT ---
EXAM DATE/TIME: 12/04/2017 04:43 [facility] COMPARISON: CHEST PA & LAT, September 04, 2015, 3:07. INDICATIONS : Left lower chest pain. MEDICAL HISTORY : None. SURGICAL HISTORY : None. ENCOUNTER: Initial ACUITY: 2 days PAIN SCORE: 8/10 LOCATION: Left lower chest FINDINGS: PA and lateral views of the chest demonstrate the lungs to be symmetrically aerated without evidence of mass, infiltrate or effusion. The cardiomediastinal contours are unremarkable. Osseous structure s are intact. CONCLUSION: No acute cardiopulmonary process. Joaquin العراقي MD on December 04, 2017 at 5:21 Board Certified Radiologist. This report was verified electronically.
--- NOTE | 2017-12-04 05:36 | RADRPT ---
EXAM DATE/TIME: 12/04/2017 04:54 [place] COMPARISON: CT ABDOMEN & PELVIS W CONTRAST, June 12, 2017, 18:11. INDICATIONS : Left upper quadrant pain. IV CONTRAST: 100 cc Omnipaque 350 (iohexol) IV ORAL CONTRAST: No oral contrast ingested. RADIATION DOSE: 5.41 CTDIvol (mGy) MEDICAL HISTORY : None SURGICAL HISTORY : None. ENCOUNTER: Initial ACUITY: 1 day PAIN SCALE: 8/10 LOCATION: Left upper quadrant TECHNIQUE: Volumetric scanning of the abdomen and pelvis was performed. Using automated exposure control and ad justment of the mA and/or kV according to patient size, radiation dose was kept as low as reasonably achievable to obtain optimal diagnostic quality images. DICOM format image data is available electro nically for review and comparison. FINDINGS: LOWER LUNGS: The visualized lower lungs are clear. LIVER: Homogeneous density without lesion. There is no dilation of the biliary tree. No calcified gallston es. SPLEEN: Normal size without lesion. PANCREAS: Within normal limits. KIDNEYS: Normal in size and shape. There is no mass, stone or hydronephrosis. ADRENAL GLANDS: Within normal limits. VASCULAR: There is no aortic aneurysm. BOWEL/MESENTERY: The stomach, small bowel, and colon demonstrate no acute abnormality. There is no free intraperitone al air or fluid. There is stool identified throughout the transverse and descending portions of the c olon which could represent mild constipation ABDOMINAL WALL: Within normal limits. RETROPERITONEUM: There is no lymphadenopathy. BLADDER: No wall thickening or mass. REPRODUCTIVE: Within normal limits. INGUINAL: There is no lymphadenopathy or hernia. MUSCULOSKELETAL: Within normal limits for patient age. Levoscoliosis of the lumbar spine may be positional. CONCLUSION: 1. Levoscoliosis of the lumbar spine this may be positional. 2. Stool throughout the distal colon possibly representing an element of constipation. 3. Otherwise negative. Joaquin العراقي MD on December 04, 2017 at 5:30 Board Certified Radiologist. This report was verified electronically.
[2017-12-04] MEDS ORDERED: PERC5TAB12 PO (05:54)
[2017-12-04] MEDS ORDERED: MACR100C2 PO (05:54)
[2017-12-04] MEDS ORDERED: PROC10TA PO (05:54)
== END 2017-12-04 06:09 | disposition home or self-care (01) ==
LOC: PHED 02:26
DX: N12 Tubulo-interstitial nephritis, not specified as acute or chronic (principal); E86.0 Dehydration; F31.9 Bipolar disorder, unspecified; F41.9 Anxiety disorder, unspecified; M06.9 Rheumatoid arthritis, unspecified; F17.200 Nicotine dependence, unspecified, uncomplicated
CPT/HCPCS: 71046; 74177; 80053; 81001; 83690; 84703; 85025; 96361; 96374; 99285; J0696; J2405; J7030; Q9967

== ENCOUNTER 2018-05-01 23:51 | Observation (INO) ==
[2018-05-02] MEDS ORDERED: Morphine Inj 4 MG/ML Vial IV.PUSH ONE (00:33)
[2018-05-02 00:53] LABS: Eos # (Auto) 0.1 th/mm3 (0.0-0.4); Eos % (Auto) 1.6 % (0.0-4.0); Hematocrit 35.3 % (35.0-46.0); Hemoglobin 11.7 gm/dL (11.6-15.3); Lymph # (Auto) 2.6 th/mm3 (1.0-4.8); Lymph % (Auto) 54.2 % (9.0-44.0); Mean Corpuscular HGB Conc 33.2 % (32.0-36.0); Mean Corpuscular Volume 87.2 fL (80.0-100.0); Mean Platelet Volume 9.3 fL (7.0-11.0); Mono # (Auto) 0.3 th/mm3 (0.0-0.9); Mono % (Auto) 6.8 % (0.0-8.0); Neut # (Auto) 1.8 th/mm3 (1.8-7.7); Neut % (Auto) 36.4 % (16.0-70.0); Platelet Count 221 th/mm3 (150-450); Red Blood Count 4.05 mil/mm3 (4.00-5.30); Red Cell Distribution Width 12.7 % (11.6-17.2); White Blood Count 4.8 th/mm3 (4.0-11.0)
--- NOTE | 2018-05-02 00:53 | XR ---
EXAM DATE: 05/02/2018 12:28 AM EDT AGE/SEX: 28 years / Female INDICATIONS: Short of breath. CLINICAL DATA: This is the patient's initial encounter. Patient reports that signs and symptoms have been present for 1 day and indicates a pain score of 5/10. MEDICAL/SURGICAL HISTORY: None. None. COMPARISON: [facility], CHEST PA & LAT, 12/04/2017. . FINDINGS: The lungs are clear. Cardiomediastinal silhouette within normal limits. No evidence of p leural effusion or pneumothorax. CONCLUSION: No acute cardiopulmonary disease identified. Electronically signed by: Uzair Lepe MD 05/02/2018 12:52 AM EDT
[2018-05-02 00:57] LABS: Activated Partial Thrombo Time 25.6 sec (24.3-30.1); INR 1.2 Ratio; Prothrombin Time 12.4 sec (9.8-11.6)
[2018-05-02 01:05] LABS: Alanine Aminotransferase 14 U/L (10-53); Albumin 3.6 g/dL (3.4-5.0); Anion Gap 9 meq/L (5-15); Aspartate Aminotransferase 11 U/L (15-37); Blood Urea Nitrogen 7 mg/dL (7-18); Carbon Dioxide 27.4 meq/L (21.0-32.0); Chloride 104 meq/L (98-107); Glomerular Filtration Rate Greater Than 89 mL/min (>89); Glucose,Random 103 mg/dL (74-106); Potassium 3.2 meq/L (3.5-5.1); Sodium 140 meq/L (136-145)
[2018-05-02 01:09] LABS: Alkaline Phosphatase 52 U/L (45-117); Total Protein 8.3 g/dL (6.4-8.2)
[2018-05-02] MEDS ORDERED: Sod Chloride 0.9% Inj 1,000 ML IV.SIG ONE (01:44)
--- NOTE | 2018-05-02 01:46 | ED ---
HPI General Chief Complaint: Arrhythmia / Palpitations Stated Complaint: Cardiac, vomiting Time Seen by Provider: 05/02/18 00:07 Source: patient and old records reviewed Mode of arrival: ambulatory Limitations: no limitations History of Present Illness HPI narrative: The patient is a 28-year-old female with past medical history significant for chronic pancreatitis and asthma as well as recent spinal surgery for herniated disc at L4 with radiculopathy at [facility] presented with complaint of palpitations and chest pain. The patient was seen at [facility] recently stated that she had a positive d-dimer and they just did a scan of her leg told that she does not have a DVT and discharge her home. Patient has been having palpitations at rest with associated chest pain and shortness of breath. Related Data Home Medications Medication Instructions Recorded Confirmed gabapentin 100 mg PO TID 05/01/18 05/01/18 albuterol sulfate 1.25 mg INHALATION Q4H PRN 05/02/18 05/02/18 Allergies Allergy/AdvReac Type Severity Reaction Status Date / Time metoclopramide AdvReac Unknown Palpitation Verified 05/02/18 00:06 s Review of Systems ROS: all other systems reviewed are negative [facility] Medical History Medical History Asthma (Acute) Pancreatitis, chronic (Acute) Surgical History Surgical History H/O Spinal surgery (Acute) Social History Social History Substance History: No History of Abuse Second Hand Smoke Exposure: No Smoking Status: Current every day smoker Tobacco Type: Cigarettes How Often Do You Have a Drink Containing Alcohol: Never Recent Travel in [facility] within the Last 8 Weeks: No Recent Out of Country Travel within the Last 8 Weeks: No Immunization History Tetanus Immunization: Unsure Hx Influenza Vaccine This Season: No Exam Narrative Exam Narrative: GENERAL: Alert and oriented no distress SKIN: Focused skin assessment warm/dry. HEAD: Atraumatic. Normocephalic. EYES: Pupils equal and round. No scleral icterus. No injection or drainage. ENT: No nasal bleeding or discharge. Mucous membranes pink and moist. NECK: Trachea midline. No JVD. CARDIOVASCULAR: Regular rate and rhythm. No murmur appreciated. RESPIRATORY: No accessory muscle use. Clear to auscultation. Breath sounds equal bilaterally. GASTROINTESTINAL: Abdomen soft, non-tender, nondistended. Hepatic and splenic margins not palpable. MUSCULOSKELETAL: No obvious deformities. No clubbing. No cyanosis. Bilateral lower extremity edema. Chronic per patient. Nonpitting. NEUROLOGICAL: Awake and alert. No obvious cranial nerve deficits. Motor grossly within normal limits. Normal speech. Weakness of left lower extremity which is also chronic. PSYCHIATRIC: Appropriate mood and affect; insight and judgment normal. Course Hospital Course: to the cardiac unit and obtain serial cardiac enzymes.To the fact the patient said that she had a d-dimer that was positive and recent surgery we obtain a CT angios that was negative for pulmonary embolism or other cardiopulmonary process at this time. Her EKG and troponin within normal limits not suggestive of acute ischemia. Due to episodes of chest pain the fact that the patient is young however she does have significant past medical history we will placed under observation Reevaluation(s) Reevaluation #1: Resting comfortably no distress Time: 01:45 Initial Documented Vital Signs Temperature 98.0 F 05/01/18 23:57 Pulse Rate 75 05/01/18 23:57 Respiratory Rate 16 05/01/18 23:57 Blood Pressure 124/72 05/01/18 23:57 Pulse Oximetry 100 05/01/18 23:57 Last Documented Vital Signs Temperature 98.0 F 05/01/18 23:57 Pulse Rate 70 05/02/18 00:12 Respiratory Rate 18 05/02/18 00:12 Blood Pressure 137/90 05/02/18 00:12 Pulse Oximetry 98 05/02/18 00:12 Medical Decision Making [facility] Narrative Medical decision making narrative: Initial cardiac workup has been unremarkable. No CT angios findings of pulmonary emboli will be admitted for reticulocyte enzymes. Does have an abnormal EKG although there is no signs of acute ischemia. Medical Screen Exam Complete: Yes Emergency Medical Condition: Yes Medical Records Medical records reviewed: Yes I reviewed the patient's medical records. Lab Data Lab results reviewed: Yes I reviewed the patient's lab results. Result diagrams: 05/02/18 00:35 05/02/18 00:35 Lab Results 05/02/18 05/02/18 05/02/18 Range/Units 00:35 00:35 00:35 WBC 4.8 (4.0-11.0) th/mm3 RBC 4.05 (4.00-5.30) mil/mm3 Hgb 11.7 (11.6-15.3) gm/dL Hct 35.3 (35.0-46.0) % MCV 87.2 (80.0-100.0) fL MCH 29.0 (27.0-34.0) pg MCHC 33.2 (32.0-36.0) % RDW 12.7 (11.6-17.2) % Plt Count 221 (150-450) th/mm3 MPV 9.3 (7.0-11.0) fL Neut % (Auto) 36.4 (16.0-70.0) % Lymph % (Auto) 54.2 H (9.0-44.0) % [place] % (Auto) 6.8 (0.0-8.0) % Eos % (Auto) 1.6 (0.0-4.0) % Baso % (Auto) 1.0 (0.0-2.0) % Neut # (Auto) 1.8 (1.8-7.7) th/mm3 Lymph # (Auto) 2.6 (1.0-4.8) th/mm3 [place] # (Auto) 0.3 (0.0-0.9) th/mm3 Eos # (Auto) 0.1 (0.0-0.4) th/mm3 Baso # (Auto) 0.0 (0.0-0.2) th/mm3 WBC Differential . Differential Comment Auto diff final PT 12.4 H (9.8-11.6) sec INR 1.2 Ratio APTT 25.6 (24.3-30.1) sec Sodium 140 (136-145) meq/L Potassium 3.2 L (3.5-5.1) meq/L Chloride 104 (98-107) meq/L Carbon Dioxide 27.4 (21.0-32.0) meq/L Anion Gap 9 (5-15) meq/L BUN 7 (7-18) mg/dL Creatinine 0.76 (0.50-1.00) mg/dL Estimated GFR Greater than 89 (>89) mL/min Random Glucose 103 (74-106) mg/dL Calcium 8.0 L (8.5-10.1) mg/dL Total Bilirubin 0.2 (0.2-1.0) mg/dL AST 11 L (15-37) U/L ALT 14 (10-53) U/L Alkaline Phosphatase 52 (45-117) U/L Troponin I Less than 0.02 L (0.02-0.05) ng/mL Total Protein 8.3 H (6.4-8.2) g/dL Albumin 3.6 (3.4-5.0) g/dL Imaging Data Radiologist's impression: Chest CTA 05/02/18 00:24 CONCLUSION: No evidence of pulmonary embolus. Chest X-Ray 05/02/18 00:28 CONCLUSION: No acute cardiopulmonary disease identified. ECG Data EKG Prior to Arrival: No Attestation: I personally reviewed and interpreted this ECG as follows: Interpretation: Sinus rhythm 82 bpm left atrial enlargement nonspecific ST-T wave abnormalities no signs of STEMI Discharge Plan Discharge Disposition Patient Disposition: 30 Still Patient Discharge Condition Condition: Good Discharge Details Diagnosis: Atypical chest pain, Heart palpitations, Status post lumbar discectomy Physicians Team ED Provider: Deo Red Primary Care Provider: Primary Care Brionna Rush Attending Provider: Leighann Patino Discharge Interventions Interventions: Vital Signs Last Done: 05/02/18 00:12 Status ED Status: Admitted Observation Patient
--- NOTE | 2018-05-02 02:44 | CT ---
EXAM DATE: 05/02/2018 12:31 AM EDT AGE/SEX: 28 years / Female INDICATIONS: Chest pain. CLINICAL DATA: This is the patient's initial encounter. Patient reports that signs and symptoms have been present for 1 day and indicates a pain score of 5/10. MEDICAL/SURGICAL HISTORY: Pancreatitis. . Laminectomy. RADIATION DOSE: 5.1 CTDI (mGy) COMPARISON: [facility] [place], CTA CHEST W 3D RECON, 10/07/2011. . TECHNIQUE: Volumetric scanning was performed using a multi-row detector CT scanner during bolus infu cristobal of 50 ml Omnipaque 350 (iohexol) nonionic water-soluble contrast as a single exam dose. The oscar a was post processed with a variety of visualization algorithms including full volume maximum intensi ty projection and sliding thin slab reformation. Using automated exposure control and adjustment of the mA and/or kV according to patient size, radiation dose was kept as low as reasonably achievable t o obtain optimal diagnostic quality images. DICOM format image data is available electronically for review and comparison. FINDINGS: Pulmonary Arteries: No filling defects to suggest pulmonary embolus. Lung: Lungs are clear. Effusion: None. Mediastinum: Thoracic aorta diameter within normal limits. No evidence of dissection. No enlarged me diastinal lymph nodes. Other: The axilla is unremarkable. CONCLUSION: No evidence of pulmonary embolus. Electronically signed by: Uzair Lepe MD 05/02/2018 2:43 AM EDT
[2018-05-02 04:29] LABS: Creatine Kinase 112 U/L (26-192)
[2018-05-02] MEDS ORDERED: Acetaminophen 500 MG Tablet PO PRN (04:34)
[2018-05-02 07:35] LABS: Creatine Kinase 118 U/L (26-192)
[2018-05-02 08:07] VITALS: BP 108/62; PULSE 58; RESP 18; TEMP 98; O2SAT 99
--- NOTE | 2018-05-02 09:01 | P.HPCA ---
History of Present Illness Primary Care Physician: Martha Messer Chief Complaint: Chest pain History of Present Illness: 28-year-old female with history of asthma, pancreatitis, and past seizure disorder presented to the ER for further evaluation of nonexertional palpitations. Patient has a flat affect, not forth coming with chief compliant therefore difficult to obtain accurate history. Apparently onset 3 weeks. Describes feelings of "air pockets and palpitations." Duration generally last 2 -4 minutes occurring every 3-4 hours. Moderate in severity. No associated symptoms of dyspnea, nausea, or diaphoresis. One non-bloody emesis yesterday. No precipitating or relieving factors. Denies similar pain in the past until 3 weeks ago. Unclear if symptoms became worse in intensity or severity yesterday. No recent illness, fever, chills or injury. No known hypertension, hyperlipidemia, or diabetes. Family history noncontributory for early onset cardiovascular disease. Reports a recent spinal surgery due to herniated disc at L4. Surgery completed at [facility]. Past cardiac testing None Social history No known hypertension, hyperlipidemia, or diabetes. Current daily smoker 3-4 cigarettes daily. Denies any alcohol or recreational drug use. Family history Noncontributory for early onset cardiovascular disease - Diagnosis (1) Heart palpitations (2) Tobacco use Review of Systems All other systems reviewed negative except as stated in HPI Comments: Last menses 04/19/18, denies chance of Neurologic: Denies convulsions, Denies seizure-like activity Comments: no seizure medications, remote seizure disorder PMFSH - History History Provided By: Patient - Medical History Medical History: Medical History (Last Updated 05/02/18 @ 10:11 by SALINA Tabor) Asthma Chronic nausea Pancreatitis, chronic Seizure disorder - Surgical History Surgical History: Surgical History (Last Updated 05/02/18 @ 10:12 by SALINA Tabor) History of lumbar surgery - Social History I have reviewed the patient's Social History: No - Tobacco History Second Hand Smoke Exposure: Yes Tobacco Use In Past 30 Days: Yes Smoking Status: Current every day smoker (3-4 cigarettes/daily) Tobacco Type: Cigarettes - Alcohol History How Often Do You Have a Drink Containing Alcohol: 2 to 3 times a week - Substance Use History Substance History: No History of Abuse - Travel History Recent Travel in the [place] Within the Last 8 Weeks: No Recent Travel Out of the Country Within the Last 8 Weeks: No - Immunization History Tetanus Immunization: Unsure Hx Influenza Vaccine This Season: No Medications and Allergies Active Medications: Active Medications Acetaminophen (Tylenol) 500 mg PO Q4H PRN PRN Reason: HEADACHE Ondansetron HCl (Zofran Inj) 4 mg IV.PUSH Q6H PRN PRN Reason: NAUSEA Sodium Chloride (Ns Flush) 2 ml IV.FLUSH BID HEAVENLY Last Admin: 05/02/18 08:33 Dose: 2 ml Sodium Chloride (Ns Flush) 2 ml IV.FLUSH PRN PRN PRN Reason: FLUSH AFTER USING IV ACCESS Allergies Allergy/AdvReac Type Severity Reaction Status Date / Time metoclopramide AdvReac Unknown Palpitation Verified 05/02/18 00:06 s Home Medications Medication Instructions Recorded Confirmed Type gabapentin 100 mg PO TID 05/01/18 05/01/18 History albuterol sulfate 1.25 mg INHALATION Q4H PRN 05/02/18 05/02/18 History Exam Vital signs: Vital Signs 05/01/18 23:57 05/02/18 00:12 05/02/18 04:00 Temperature 98.0 F 98.2 F Pulse Rate 75 70 77 Respiratory Rate 16 18 16 Blood Pressure 124/72 137/90 117/81 Pulse Oximetry 100 98 98 05/02/18 07:30 05/02/18 08:05 Temperature 98.0 F Pulse Rate 68 58 L Respiratory Rate 18 Blood Pressure 108/62 Pulse Oximetry 99 Intake & Output 05/01/18 05/02/18 05/02/18 18:59 06:59 18:59 Intake Total 1000 / 1000 Balance 1000 / 1000 Weight 58.967 kg Intake: IV 1000 / 1000 NS Inj 1,000 ML @ Wide Open IV. 1000 / 1000 SIG BOLUS ONE Rx#:[id number] Other: Date of Last Bowel Movement 05/01/18 05/01/18 Weight On Admission 58.967 kg Narrative: GENERAL: Alert WN, WD, NAD, thin, -[place] female HEAD: NC, AT CV: RRR, without murmur, rub, gallop, no JVD, S1-S2 no S3-S4. Chest wall nontender to palpation RESP: Clear lungs throughout bilateral, no crackles, wheeze, rhonchi, symmetrical chest rise, nonlabored, able to speak in full sentences ABD: Soft, NT, ND, no masses, positive bowel tones EXT: Pulses +2x4, no dependent edema MS: Normal tone x4 extremities, nontender, no obvious deformities, full range of motion NEURO: CN II through CN XII grossly intact, motor strength 5/5 PSYCH: A+O 3, flat affect, appropriate speech, speaks softly, avoids eye contact , questionable insight and judgment SKIN: Normal turgor, normal texture, no lesions, no rashes, brisk cap refill, even hair distribution Results 05/02/18 00:35 05/02/18 00:35 Cardiac Enzymes 05/02/18 05/02/18 05/02/18 Range/Units 00:35 03:23 05:20 AST 11 L (15-37) U/L Troponin I Less than 0.02 L Less than 0.02 L Less than 0.02 L (0.02-0.05) ng/mL Coagulation 05/02/18 Range/Units 00:35 PT 12.4 H (9.8-11.6) sec APTT 25.6 (24.3-30.1) sec CBC 05/02/18 Range/Units 00:35 WBC 4.8 (4.0-11.0) th/mm3 RBC 4.05 (4.00-5.30) mil/mm3 Hgb 11.7 (11.6-15.3) gm/dL Hct 35.3 (35.0-46.0) % Plt Count 221 (150-450) th/mm3 Neut # (Auto) 1.8 (1.8-7.7) th/mm3 Lymph # (Auto) 2.6 (1.0-4.8) th/mm3 [place] # (Auto) 0.3 (0.0-0.9) th/mm3 Eos # (Auto) 0.1 (0.0-0.4) th/mm3 Baso # (Auto) 0.0 (0.0-0.2) th/mm3 Comprehensive Metabolic Panel 05/02/18 Range/Units 00:35 Sodium 140 (136-145) meq/L Potassium 3.2 L (3.5-5.1) meq/L Chloride 104 (98-107) meq/L Carbon Dioxide 27.4 (21.0-32.0) meq/L BUN 7 (7-18) mg/dL Creatinine 0.76 (0.50-1.00) mg/dL Calcium 8.0 L (8.5-10.1) mg/dL AST 11 L (15-37) U/L ALT 14 (10-53) U/L Alkaline Phosphatase 52 (45-117) U/L Total Protein 8.3 H (6.4-8.2) g/dL Albumin 3.6 (3.4-5.0) g/dL Intake and Output 05/01/18 05/02/18 05/02/18 22:59 06:59 14:59 Intake Total 1000 / 1000 Balance 1000 / 1000 Intake: IV 1000 / 1000 NS Inj 1,000 ML @ Wide Open IV. 1000 / 1000 SIG BOLUS ONE Rx#:[id number] Other: Date of Last Bowel Movement 05/01/18 05/01/18 Weight 58.967 kg Weight On Admission 58.967 kg - Imaging and Cardiology Imaging: Impressions Chest CTA 05/02/18 00:24 CONCLUSION: No evidence of pulmonary embolus. Chest X-Ray 05/02/18 00:28 CONCLUSION: No acute cardiopulmonary disease identified. EKG interpretations - EKG EKG results cardiology: sinus rhythm, normal axis (Nonspecific T wave changes- similar to comparison EKGs) Caprini VTE Risk Assessment Caprini VTE Risk Assessment: No/Low Risk (score <= 1) Caprini Risk Assessment Model: Point Value = 1 Point Value = 2 Point Value = 3 Point Value = 5 Age 41-60 Minor surgery BMI > 25 kg/m2 Swollen legs Varicose veins or History of unexplained or recurrent spontaneous Oral contraceptives or hormone replacement Sepsis (< 1 month) Serious lung disease, including pneumonia (< 1 month) Abnormal pulmonary function Acute myocardial infarction Congestive heart failure (< 1 month) History of inflammatory bowel disease Medical patient at bed rest Age 61-74 Arthroscopic surgery Major open surgery (> 45 min) Laparoscopic surgery (> 45 min) Malignancy Confined to bed (> 72 hours) Immobilizing plaster cast Central venous access Age >= 75 History of VTE Family history of VTE Factor V Leiden Prothrombin [id number] Lupus anticoagulant Anticardiolipin antibodies Elevated serum homocysteine Heparin-induced thrombocytopenia Other congenital or acquired thrombophilia Stroke (< 1 month) Elective arthroplasty Hip, pelvis, or leg fracture Acute spinal cord injury (< 1 month) Prophylaxis Regimen: Total Risk Factor Score Risk Level Prophylaxis Regimen 0-1 Low Early ambulation 2 Moderate Order ONE of the following: *Sequential Compression Device (SCD) *Heparin 5000 units SQ BID 3-4 Higher Order ONE of the following medications: *Heparin 5000 units SQ TID *Enoxaparin/Lovenox 40 mg SQ daily (WT < 150 kg, CrCl > 30 mL/min) *Enoxaparin/Lovenox 30 mg SQ daily (WT < 150 kg, CrCl > 10-29 mL/min) *Enoxaparin/Lovenox 30 mg SQ BID (WT < 150 kg, CrCl > 30 mL/min) AND/OR *Sequential Compression Device (SCD) 5 or more Highest Order ONE of the following medications: *Heparin 5000 units SQ TID (Preferred with Epidurals) *Enoxaparin/Lovenox 40 mg SQ daily (WT < 150 kg, CrCl > 30 mL/min) *Enoxaparin/Lovenox 30 mg SQ daily (WT < 150 kg, CrCl > 10-29 mL/min) *Enoxaparin/Lovenox 30 mg SQ BID (WT < 150 kg, CrCl > 30 mL/min) AND *Sequential Compression Device (SCD) Assessment and Plan - Assessment (1) Heart palpitations Code(s): R00.2 - Palpitations Status: Acute Plan: Admitted to chest pain center. ACS ruled out 3 sets of EKGs and cardiac enzymes. Dr. Danny Baer. Telemetry reviewed. Proceed with Lexiscan. Likely testing unremarkable, plan to discharge home with follow up with PCP. (2) Tobacco use Code(s): Z72.0 - Tobacco use Status: Chronic Plan: Encouraged and stressed importance of tobacco cessation. Instructed to quit smoking. Made aware of Tobacco Free [place] programs available free of charge. H&P: Quality - VTE Deep Vein Thrombosis/Pulmonary Embolism Present on Admission: No
[2018-05-02] MEDS ORDERED: Regadenoson Inj 0.4 MG/5 ML Syringe IV.PUSH ONE (09:55)
--- NOTE | 2018-05-02 11:42 | NM ---
EXAM DATE: 05/02/2018 8:49 AM EDT AGE/SEX: 28 years / Female INDICATIONS:Angina. . Chest pain and palpitations. CLINICAL DATA: This is the patient's initial encounter. Patient reports that signs and symptoms have been present for 1 day and indicates a pain score of 0/10. MEDICAL/SURGICAL HISTORY: . Smoker. Beta - Discectomy, lumbar. COMPARISON: No prior exams available for comparison. DOSE: 8.4 mCi Tc 99m Myoview at rest 27.2 mCi [id number] at stress 0.4 mg Lexiscan STRESS SYMPTOMS: Heart racing. EJECTION FRACTION: 61 % TECHNIQUE: The patient underwent pharmacologic stress with infusion of prescribed dose. Continuous ECG tracing was monitored during stress. Gated SPECT imaging was performed after stress and conventi onal SPECT imaging was performed at rest. The examination was performed on a SPECT/CT scanner, both attenuation and non-corrected datasets were reviewed. FINDINGS: Distribution: The maximum perfused segment at stress is in the inferior wall. Perfusion Study: The pattern of perfusion at stress is within normal limits. No fixed or reversible perfusion defect is identified. Gated Study: There are intact wall motion and wall thickening without hypokinetic or dyskinetic segm ents. The ejection fraction is calculated at 61%. RISK CATEGORY: Low (<1% Annual Motality Rate) CONCLUSION: 1. No left ventricle perfusion abnormality is identified. 2. Normal left ventricle wall motion and ejection fraction. Electronically signed by: Venkat Banda MD 05/02/2018 11:41 AM EDT
[2018-05-02] MEDS ORDERED: Gabapentin 100 MG Capsule PO SCH (13:00)
--- NOTE | 2018-05-02 15:18 | ECG ---
Date Performed: 05/02/2018 Time Performed: 03:36:57 PTAGE: 28 years EKG: Sinus rhythm BORDERLINE ECG PREVIOUS TRACING : 05/02/2018 00.08 Since previous tracing, no significant change noted DOCTOR: Danny Baer Interpretating Date/Time 05/02/2018 15:17:35
--- NOTE | 2018-05-02 15:19 | ECG ---
Date Performed: 05/02/2018 Time Performed: 00:08:19 PTAGE: 28 years EKG: Sinus rhythm POSSIBLE LEFT ATRIAL ENLARGEMENT MODERATE T-WAVE ABNORMALITY, CONSIDER ANTERIOR ISCHEMIA ABNORMAL EC G PREVIOUS TRACING : 02/03/2016 10.16 Since previous tracing,t wave changes are present DOCTOR: Danny Baer Interpretating Date/Time 05/02/2018 15:18:31
--- NOTE | 2018-05-02 15:20 | ECG ---
Date Performed: 05/02/2018 Time Performed: 06:58:41 PTAGE: 28 years EKG: SINUS BRADYCARDIA BORDERLINE ECG WARNING: DATA QUALITY MAY AFFECT INTERPRETATION PREVIOUS TRACING : 05/02/2018 03.36 Since previous tracing, no significant change noted DOCTOR: Danny Baer Interpretating Date/Time 05/02/2018 15:19:26
--- NOTE | 2018-05-02 15:24 | TR ---
Date Performed: 05/02/2018 Time Performed: 09:54:28 DOCTOR: Danny Baer DRUG LIST: CLINICAL HISTORY: REASON FOR TEST: REASON FOR ENDING: OBSERVATION: CONCLUSION: COMMENTS: Lexiscan stress test was performed under standard four minute protocol. Radionuclide was injected one minute prior to ending the test. No electrocardiographic abormalities were present t o suggest ischemia. Nuclear imaging and interpretation are pending.
== END 2018-05-02 12:41 | disposition home or self-care (01) ==
LOC: NEDA 23:51 → NEPC 23:51 → NEPFCDU 05-02 03:54
PROVIDERS: ADMIT Internal Medicine Interventional Cardiology; ATTEND Internal Medicine Interventional Cardiology